=== PATIENT | male | born 1975 | race Caucasian/White ===

== ENCOUNTER 2018-04-08 20:53 | Emergency (ER) | payer OTHER ==
[~2018-04-08] VITALS: Ht 195.6 cm; Wt 81.7 kg
[2018-04-08] MEDS ORDERED: BACTRIM DS TAB1 EAC1 PO (23:05)
[2018-04-08] MEDS ORDERED: HYDROCODONE-AP1 EAC6 PO (23:50)
[2018-04-09 00:02] VITALS: BP 117/67
== END 2018-04-09 00:03 | disposition short-term general hospital (02) ==
LOC: M.ERS 20:53
DX: S92.332A Displaced fracture of third metatarsal bone, left foot, initial encounter for closed fracture (principal); S92.322A Displaced fracture of second metatarsal bone, left foot, initial encounter for closed fracture; S81.812A Laceration without foreign body, left lower leg, initial encounter; Z88.0 Allergy status to penicillin; X58.XXXA Exposure to other specified factors, initial encounter; Y93.89 Activity, other specified; Y92.89 Other specified places as the place of occurrence of the external cause; Y99.8 Other external cause status